=== PATIENT | male | born 1945 | race Caucasian/White ===

== ENCOUNTER → 2017-05-06 16:11 | Outpatient (CLI) | payer MEDICARE, SELFPAY ==
[2017-05-06 16:44] LABS: Basophils % 0.6 % (0.1-2.0); Eosinophils # 0.1 K/mm3 (0.0-0.4); Eosinophils % 1.7 % (0.1-12.0); Hematocrit 46.1 % (42.0-52.0); Hemoglobin 14.7 g/dL (14.1-18.0); Lymphocytes # 1.5 K/mm3 (0.7-4.5); Mean Corpuscular Hemoglobin 29.8 pg (27.0-31.2); Mean Corpuscular Volume 93.2 fl (80-94); Mean Platelet Volume 7.9 fl (7.4-10.4); Monocytes # 0.4 K/mm3 (0.1-1.0); Monocytes % 6.2 % (1.7-9.3); Neutrophils # 4.6 K/mm3 (1.8-7.8); Neutrophils % 69.6 % (37.0-80.0); Platelet Count 262 K/mm3 (142-424); Red Blood Count 4.94 M/mm3 (4.60-6.20); Red Cell Distribution Width 13.3 % (11.5-17.5); White Blood Count 6.7 K/mm3 (4.8-10.8)
[2017-05-06 19:53] LABS: Alanine Aminotransferase 41 U/L (12-78); Albumin Level 4.1 gm/dL (3.4-5.0); Albumin/Globulin Ratio 1.2 (1.1-1.8); Alkaline Phosphatase 80 U/L (46-116); Anion Gap 14.3 mEq/L (5-15); Aspartate Amino Transferase 32 U/L (15-37); Bilirubin,Total 0.3 mg/dL (0.2-1.0); Blood Urea Nitrogen 14 mg/dL (7-18); Calcium 8.9 mg/dL (8.5-10.1); Carbon Dioxide 28 mmol/L (21.0-32.0); Chloride 104 mmol/L (98-107); Chol/HDL Ratio 3.5 (1-3.5); Cholesterol 201 mg/dL (140-200); Creatinine,Serum 0.85 mg/dL (0.70-1.30); Estimated Glomerular Filt Rate 89 ml/min (>60); GFR (African American) 108 ML/MIN (>60); Globulin 3.3 gm/dl (1.3-3.2); Glucose 92 mg/dL (74-106); HDL Cholesterol 57 mg/dL (27-67); LDL Cholesterol 133 mg/dL (0-130); Potassium 4.3 mmoL/L (3.5-5.1); Sodium 142 mmol/L (136-145); Thyroid Stimulating Hormone 0.64 uIU/ml (0.358-3.740); Total Protein,Serum 7.4 gm/dL (6.4-8.2); Triglycerides 56 mg/dL (30-200); VLDL Cholesterol 11 mg/dL (0-40)
[2017-05-08 18:29] LABS: Vitamin B12 347 pg/mL (232-1245); Vitamin D 25 Hydroxy 20.6 ng/mL (30.0-100.0)
== END ==
PROVIDERS: PCP Nurse Practitioner Family; Visit Provider Nurse Practitioner Family
DX: Z00.00 Encounter for general adult medical examination without abnormal findings (principal); R53.83 Other fatigue; R10.84 Generalized abdominal pain; Z79.899 Other long term (current) drug therapy
CPT/HCPCS: 36415; 80053; 80061; 82607; 82652; 84443; 85025

== ENCOUNTER → 2017-05-13 14:30 | Outpatient (POV) | payer MEDICARE, SELFPAY | PROVIDERS: PCP Nurse Practitioner Family; Visit Provider Dermatology | DX: Z00.00 Encounter for general adult medical examination without abnormal findings (principal) ==

== ENCOUNTER → 2017-08-10 10:22 | Outpatient (POV) | payer MEDICARE, SELFPAY | PROVIDERS: Visit Provider Internal Medicine | DX: Z00.00 Encounter for general adult medical examination without abnormal findings (principal) ==

== ENCOUNTER → 2017-11-04 10:53 | Outpatient (CLI) | payer MEDICARE, SELFPAY ==
[2017-11-04 12:06] LABS: Alanine Aminotransferase 29 U/L (12-78); Alkaline Phosphatase 90 U/L (46-116); Aspartate Amino Transferase 19 U/L (15-37); Bilirubin,Total 0.4 mg/dL (0.2-1.0); Blood Urea Nitrogen 18 mg/dL (7-18); Calcium 9.2 mg/dL (8.5-10.1); Carbon Dioxide 30 mmol/L (21.0-32.0); Chloride 103 mmol/L (98-107); Chol/HDL Ratio 3.8 (1-3.5); Cholesterol 209 mg/dL (140-200); Creatinine,Serum 0.91 mg/dL (0.70-1.30); Estimated Glomerular Filt Rate 82 ml/min (>60); GFR (African American) 99 ML/MIN (>60); Glucose 103 mg/dL (74-106); HDL Cholesterol 55 mg/dL (27-67); LDL Cholesterol 121 mg/dL (0-130); Sodium 141 mmol/L (136-145); Triglycerides 165 mg/dL (30-200); VLDL Cholesterol 33 mg/dL (0-40)
== END ==
PROVIDERS: Visit Provider Nurse Practitioner Family
DX: Z00.00 Encounter for general adult medical examination without abnormal findings (principal); E78.00 Pure hypercholesterolemia, unspecified
CPT/HCPCS: 36415; 80053; 80061

== ENCOUNTER → 2018-02-02 09:42 | Outpatient (CLI) | payer MEDICARE, SELFPAY ==
[2018-02-02 11:46] LABS: Alanine Aminotransferase 26 U/L (12-78); Albumin/Globulin Ratio 1.1 (1.1-1.8); Alkaline Phosphatase 90 U/L (46-116); Anion Gap 14.9 mEq/L (5-15); Aspartate Amino Transferase 25 U/L (15-37); Bilirubin,Total 0.5 mg/dL (0.2-1.0); Blood Urea Nitrogen 19 mg/dL (7-18); Calcium 8.8 mg/dL (8.5-10.1); Carbon Dioxide 28 mmol/L (21.0-32.0); Chloride 103 mmol/L (98-107); Chol/HDL Ratio 3.7 (1-3.5); Cholesterol 227 mg/dL (140-200); Creatinine,Serum 1.12 mg/dL (0.70-1.30); Estimated Glomerular Filt Rate 64 ml/min (>60); GFR (African American) 78 ML/MIN (>60); Globulin 3.7 gm/dl (1.3-3.2); Glucose 92 mg/dL (74-106); HDL Cholesterol 61 mg/dL (27-67); LDL Cholesterol 133 mg/dL (0-130); Potassium 4.9 mmoL/L (3.5-5.1); Sodium 141 mmol/L (136-145); Total Protein,Serum 7.7 gm/dL (6.4-8.2); Triglycerides 167 mg/dL (30-200); VLDL Cholesterol 33 mg/dL (0-40)
== END ==
PROVIDERS: PCP Internal Medicine Adolescent Medicine; Visit Provider Nurse Practitioner Family
DX: Z00.00 Encounter for general adult medical examination without abnormal findings (principal); E78.00 Pure hypercholesterolemia, unspecified
CPT/HCPCS: 36415; 80053; 80061

== ENCOUNTER → 2018-05-05 10:14 | Outpatient (CLI) | payer MEDICARE, SELFPAY ==
[2018-05-05 13:22] LABS: Alanine Aminotransferase 25 U/L (12-78); Albumin Level 3.6 gm/dL (3.4-5.0); Alkaline Phosphatase 94 U/L (46-116); Aspartate Amino Transferase 24 U/L (15-37); Bilirubin,Total 0.7 mg/dL (0.2-1.0); Blood Urea Nitrogen 17 mg/dL (7-18); Calcium 9.1 mg/dL (8.5-10.1); Carbon Dioxide 27 mmol/L (21.0-32.0); Chloride 105 mmol/L (98-107); Chol/HDL Ratio 3.9 (1-3.5); Cholesterol 212 mg/dL (140-200); Creatinine,Serum 1.01 mg/dL (0.70-1.30); Estimated Glomerular Filt Rate 73 ml/min (>60); GFR (African American) 88 ML/MIN (>60); Globulin 3.5 gm/dl (1.3-3.2); Glucose 93 mg/dL (74-106); HDL Cholesterol 54 mg/dL (27-67); LDL Cholesterol 149 mg/dL (0-130); Sodium 140 mmol/L (136-145); Total Protein,Serum 7.1 gm/dL (6.4-8.2); Triglycerides 44 mg/dL (30-200); VLDL Cholesterol 9 mg/dL (0-40)
== END ==
PROVIDERS: Visit Provider Nurse Practitioner Family
DX: Z00.00 Encounter for general adult medical examination without abnormal findings (principal); E78.00 Pure hypercholesterolemia, unspecified; R76.8 Other specified abnormal immunological findings in serum
CPT/HCPCS: 36415; 80053; 80061

== ENCOUNTER → 2018-05-17 08:51 | Outpatient (POV) | payer MEDICARE, SELFPAY | PROVIDERS: Visit Provider Dermatology | DX: Z00.00 Encounter for general adult medical examination without abnormal findings (principal) ==

== ENCOUNTER → 2018-06-30 09:04 | Outpatient (CLI) | payer MEDICARE, SELFPAY ==
--- NOTE | 2018-06-30 10:00 | US_ITS ---
US abdomen complete HISTORY: ITS.REASON: HEP C ORDERING PHYSICIAN: Fernando Bhatt PATIENT AGE: 73 years COMPARISON: None FINDINGS: PANCREAS:Unremarkable. No obvious mass or abnormal fluid collection. No ductal dilatation LIVER:There is homogeneous echogenicity of the hepatic parenchyma. A 2 x 1 cm hypoechoic area is present in the medial segment of left hepatic lobe anteriorly and consistent with a hepatic cyst. Portal vein is not enlarged. RIGHT KIDNEY:Unremarkable. Normal size and echogenicity. No hydronephrosis. There is 8 mm right renal cyst LEFT KIDNEY:Poorly demonstrated. No obvious hydronephrosis. GALLBLADDER:No gallstones, gallbladder wall thickening, pericholecystic fluid, or biliary dilatation. AORTA:No evidence of aneurysmal dilatation. SPLEEN:Poorly demonstrated ASCITES:None demonstrated. IMPRESSION: 1. 2 cm hepatic cyst 2. The spleen and left kidney are not well delineated. 3. Small right renal cyst 4 otherwise negative abdominal ultrasound
== END ==
PROVIDERS: PCP Internal Medicine Adolescent Medicine; Visit Provider Nurse Practitioner Acute Care
DX: B19.20 Unspecified viral hepatitis C without hepatic coma (principal)
CPT/HCPCS: 76700

== ENCOUNTER → 2018-07-25 09:48 | Outpatient (CLI) | payer MEDICARE, SELFPAY ==
[2018-07-25 10:45] VITALS: PULSE 85; PULSE 87
[2018-07-25 11:30] VITALS: BP 120/72; BP 130/75; PULSE 102; PULSE 83; RESP 16; RESP 18; O2SAT 97; O2SAT 98
== END ==
PROVIDERS: PCP Internal Medicine Adolescent Medicine; Visit Provider Internal Medicine
DX: R06.02 Shortness of breath (principal); J44.9 Chronic obstructive pulmonary disease, unspecified
CPT/HCPCS: 94060; 94618; 94640; 94726; 94729

== ENCOUNTER → 2018-08-09 10:22 | Outpatient (POV) | payer MEDICARE, SELFPAY ==
[2018-08-09 10:53] LABS: Basophils % 0.8 % (0.1-2.0); Eosinophils # 0.3 K/mm3 (0.0-0.4); Eosinophils % 5.7 % (0.1-12.0); Hematocrit 45.1 % (42.0-52.0); Hemoglobin 14.7 g/dL (14.1-18.0); Lymphocytes # 1.5 K/mm3 (0.7-4.5); Lymphocytes % 26.3 % (10-50); Mean Corpuscular HGB Conc 32.6 g/dL (31.8-35.4); Mean Corpuscular Hemoglobin 29.9 pg (27.0-31.2); Mean Corpuscular Volume 91.9 fl (80-94); Mean Platelet Volume 7.4 fl (7.4-10.4); Monocytes # 0.5 K/mm3 (0.1-1.0); Monocytes % 9.3 % (1.7-9.3); Neutrophils # 3.2 K/mm3 (1.8-7.8); Neutrophils % 57.9 % (37.0-80.0); Platelet Count 250 K/mm3 (142-424); Red Cell Distribution Width 13.7 % (11.5-17.5); White Blood Count 5.5 K/mm3 (4.8-10.8)
[2018-08-09 14:42] LABS: Alanine Aminotransferase 23 U/L (12-78); Albumin/Globulin Ratio 1.1 (1.1-1.8); Alkaline Phosphatase 99 U/L (46-116); Anion Gap 15.4 mEq/L (5-15); Aspartate Amino Transferase 16 U/L (15-37); Bilirubin,Total 0.5 mg/dL (0.2-1.0); Blood Urea Nitrogen 14 mg/dL (7-18); Calcium 9.3 mg/dL (8.5-10.1); Carbon Dioxide 26 mmol/L (21.0-32.0); Chloride 102 mmol/L (98-107); Creatinine,Serum 0.87 mg/dL (0.70-1.30); Estimated Glomerular Filt Rate 86 ml/min (>60); GFR (African American) 104 ML/MIN (>60); Globulin 3.8 gm/dl (1.3-3.2); Glucose 96 mg/dL (74-106); Potassium 4.4 mmoL/L (3.5-5.1); Sodium 139 mmol/L (136-145); Total Protein,Serum 7.8 gm/dL (6.4-8.2)
== END ==
PROVIDERS: Nurse Practitioner Acute Care; Visit Provider Internal Medicine
DX: R94.5 Abnormal results of liver function studies (principal); B19.20 Unspecified viral hepatitis C without hepatic coma; Z79.899 Other long term (current) drug therapy
CPT/HCPCS: 36415; 80053; 85025; 87522

== ENCOUNTER → 2018-08-09 10:35 | Outpatient (POV) | payer MEDICARE, SELFPAY | PROVIDERS: Visit Provider Internal Medicine | DX: Z00.00 Encounter for general adult medical examination without abnormal findings (principal) ==

== ENCOUNTER → 2018-09-06 10:29 | Outpatient (CLI) | payer MEDICARE, SELFPAY ==
[2018-09-08 23:07] LABS: HCV Genotype Charge YES
== END ==
PROVIDERS: Visit Provider Nurse Practitioner Acute Care
DX: B19.20 Unspecified viral hepatitis C without hepatic coma (principal); Z79.899 Other long term (current) drug therapy
CPT/HCPCS: 36415; 87522; 87902

== ENCOUNTER → 2018-09-20 10:10 | Outpatient (CLI) | payer MEDICARE, SELFPAY ==
[2018-09-20 12:13] LABS: Basophils % 0.7 % (0.1-2.0); Eosinophils # 0.2 K/mm3 (0.0-0.4); Eosinophils % 4.4 % (0.1-12.0); Hematocrit 42.7 % (42.0-52.0); Hemoglobin 13.3 g/dL (14.1-18.0); Lymphocytes % 22.4 % (10-50); Mean Corpuscular HGB Conc 31.2 g/dL (31.8-35.4); Mean Corpuscular Hemoglobin 28.7 pg (27.0-31.2); Mean Corpuscular Volume 91.8 fl (80-94); Mean Platelet Volume 8.1 fl (7.4-10.4); Monocytes # 0.4 K/mm3 (0.1-1.0); Neutrophils # 2.9 K/mm3 (1.8-7.8); Neutrophils % 63.5 % (37.0-80.0); Platelet Count 238 K/mm3 (142-424); Red Blood Count 4.66 M/mm3 (4.60-6.20); Red Cell Distribution Width 13.4 % (11.5-17.5); White Blood Count 4.6 K/mm3 (4.8-10.8)
[2018-09-20 12:16] LABS: Alanine Aminotransferase 18 U/L (12-78); Albumin Level 3.7 gm/dL (3.4-5.0); Albumin/Globulin Ratio 1.1 (1.1-1.8); Alkaline Phosphatase 95 U/L (46-116); Anion Gap 11.9 mEq/L (5-15); Aspartate Amino Transferase 18 U/L (15-37); Bilirubin,Total 0.5 mg/dL (0.2-1.0); Blood Urea Nitrogen 12 mg/dL (7-18); Calcium 8.8 mg/dL (8.5-10.1); Carbon Dioxide 28 mmol/L (21.0-32.0); Chloride 105 mmol/L (98-107); Estimated Glomerular Filt Rate 83 ml/min (>60); GFR (African American) 100 ML/MIN (>60); Globulin 3.5 gm/dl (1.3-3.2); Glucose 90 mg/dL (74-106); Potassium 4.9 mmoL/L (3.5-5.1); Sodium 140 mmol/L (136-145); Total Protein,Serum 7.2 gm/dL (6.4-8.2)
[2018-09-20 13:27] LABS: INR 1.02 (0.9-1.1); Prothrombin Time 10.6 seconds (9.4-11.8)
[2018-09-22 12:15] LABS: HCV Genotype Charge YES
== END ==
PROVIDERS: Visit Provider Nurse Practitioner Acute Care
DX: B19.20 Unspecified viral hepatitis C without hepatic coma (principal); Z79.899 Other long term (current) drug therapy
CPT/HCPCS: 36415; 80053; 85025; 85610; 87522; 87902

== ENCOUNTER → 2018-10-26 09:58 | Outpatient (CLI) | payer MEDICARE, SELFPAY ==
[2018-10-26 10:20] LABS: Basophils # 0.1 K/mm3 (0-0.2); Basophils % 1.1 % (0.1-2.0); Eosinophils # 0.2 K/mm3 (0.0-0.4); Eosinophils % 3.8 % (0.1-12.0); Hematocrit 41.8 % (42.0-52.0); Hemoglobin 13.2 g/dL (14.1-18.0); Lymphocytes # 1.1 K/mm3 (0.7-4.5); Lymphocytes % 19.7 % (10-50); Mean Corpuscular HGB Conc 31.6 g/dL (31.8-35.4); Mean Corpuscular Hemoglobin 28.8 pg (27.0-31.2); Mean Corpuscular Volume 91.1 fl (80-94); Mean Platelet Volume 7.4 fl (7.4-10.4); Monocytes # 0.4 K/mm3 (0.1-1.0); Monocytes % 7.1 % (1.7-9.3); Neutrophils # 3.6 K/mm3 (1.8-7.8); Neutrophils % 68.2 % (37.0-80.0); Platelet Count 239 K/mm3 (142-424); Red Blood Count 4.59 M/mm3 (4.60-6.20); Red Cell Distribution Width 13.6 % (11.5-17.5); White Blood Count 5.3 K/mm3 (4.8-10.8)
[2018-10-26 11:46] LABS: Alanine Aminotransferase 17 U/L (12-78); Albumin Level 3.4 gm/dL (3.4-5.0); Albumin/Globulin Ratio 1.1 (1.1-1.8); Alkaline Phosphatase 90 U/L (46-116); Anion Gap 13.5 mEq/L (5-15); Aspartate Amino Transferase 17 U/L (15-37); Bilirubin,Total 0.3 mg/dL (0.2-1.0); Blood Urea Nitrogen 12 mg/dL (7-18); Calcium 8.9 mg/dL (8.5-10.1); Carbon Dioxide 29 mmol/L (21.0-32.0); Chloride 105 mmol/L (98-107); Creatinine,Serum 0.93 mg/dL (0.70-1.30); Estimated Glomerular Filt Rate 80 ml/min (>60); GFR (African American) 97 ML/MIN (>60); Globulin 3.2 gm/dl (1.3-3.2); Glucose 84 mg/dL (74-106); Potassium 4.5 mmoL/L (3.5-5.1); Sodium 143 mmol/L (136-145); Total Protein,Serum 6.6 gm/dL (6.4-8.2)
== END ==
PROVIDERS: Visit Provider Nurse Practitioner Acute Care
DX: B19.20 Unspecified viral hepatitis C without hepatic coma (principal)
CPT/HCPCS: 36415; 80053; 85025; 87522

== ENCOUNTER → 2018-12-13 08:25 | Outpatient (CLI) | payer MEDICARE, SELFPAY ==
[2018-12-13 08:51] LABS: INR 0.96 (0.9-1.1)
[2018-12-13 09:00] LABS: Basophils % 0.6 % (0.1-2.0); Eosinophils # 0.2 K/mm3 (0.0-0.4); Eosinophils % 4.2 % (0.1-12.0); Hematocrit 45.6 % (42.0-52.0); Hemoglobin 14.6 g/dL (14.1-18.0); Lymphocytes # 1.2 K/mm3 (0.7-4.5); Lymphocytes % 20.8 % (10-50); Mean Corpuscular HGB Conc 32.1 g/dL (31.8-35.4); Mean Corpuscular Hemoglobin 30.6 pg (27.0-31.2); Mean Corpuscular Volume 95.3 fl (80-94); Mean Platelet Volume 7.4 fl (7.4-10.4); Monocytes # 0.4 K/mm3 (0.1-1.0); Monocytes % 7.3 % (1.7-9.3); Neutrophils # 3.7 K/mm3 (1.8-7.8); Neutrophils % 67.1 % (37.0-80.0); Platelet Count 215 K/mm3 (142-424); Red Blood Count 4.78 M/mm3 (4.60-6.20); Red Cell Distribution Width 13.7 % (11.5-17.5); White Blood Count 5.5 K/mm3 (4.8-10.8)
[2018-12-13 10:49] LABS: Alanine Aminotransferase 17 U/L (12-78); Albumin Level 3.6 gm/dL (3.4-5.0); Albumin/Globulin Ratio 1.1 (1.1-1.8); Alkaline Phosphatase 79 U/L (46-116); Aspartate Amino Transferase 21 U/L (15-37); Bilirubin,Total 0.5 mg/dL (0.2-1.0); Blood Urea Nitrogen 13 mg/dL (7-18); Calcium 8.8 mg/dL (8.5-10.1); Carbon Dioxide 29 mmol/L (21.0-32.0); Chloride 106 mmol/L (98-107); Creatinine,Serum 0.84 mg/dL (0.70-1.30); Estimated Glomerular Filt Rate 90 ml/min (>60); GFR (African American) 109 ML/MIN (>60); Globulin 3.4 gm/dl (1.3-3.2); Glucose 93 mg/dL (74-106); Sodium 143 mmol/L (136-145)
[2018-12-13 11:20] LABS: Triglycerides 52 mg/dL (30-200)
[2018-12-13 11:21] LABS: Chol/HDL Ratio 3.2 (1-3.5); Cholesterol 188 mg/dL (140-200); HDL Cholesterol 58 mg/dL (27-67); LDL Cholesterol 120 mg/dL (0-130); VLDL Cholesterol 10 mg/dL (0-40)
[2018-12-14 07:28] LABS: Vitamin B12 336 pg/mL (232-1245); Vitamin D 25 Hydroxy 22.8 ng/mL (30.0-100.0)
== END ==
PROVIDERS: Nurse Practitioner Family; Visit Provider Nurse Practitioner Acute Care
DX: B19.20 Unspecified viral hepatitis C without hepatic coma (principal); Z79.899 Other long term (current) drug therapy; E78.00 Pure hypercholesterolemia, unspecified; E53.8 Deficiency of other specified B group vitamins; E55.9 Vitamin D deficiency, unspecified
CPT/HCPCS: 36415; 80053; 80061; 82607; 82652; 85025; 85610; 87522

== ENCOUNTER → 2018-12-28 13:22 | Outpatient (CLI) | payer MEDICARE, SELFPAY ==
--- NOTE | 2018-12-28 13:30 | XR_ITS ---
PROCEDURE: XR HAND LT MIN 3V CLINICAL INDICATION: CELLULITIS OF LT HAND Pain and swelling, history of splinter in the foam a COMPARISON: [id number] XR hand RT min 3V from 01/27/2018 FINDINGS: No fracture or dislocation. No lytic or blastic change. There is normal mineralization. The joint spaces are well-preserved. No significant degenerative/arthritic changes. No erosive changes evident. Other findings:No radiopaque foreign body apparent IMPRESSION: No acute finding Dictated by: Ashvin Clemens MD 12/28/2018 14:00 Electronically signed by Ashvin Clemens MD in [place] 12/28/2018 14:00
== END ==
PROVIDERS: PCP Internal Medicine Adolescent Medicine; Visit Provider Nurse Practitioner Family
DX: L03.114 Cellulitis of left upper limb (principal)
CPT/HCPCS: 73130

== ENCOUNTER → 2019-05-16 09:56 | Outpatient (CLI) | payer MEDICARE, SELFPAY ==
[2019-05-16 10:25] LABS: Basophils # 0.1 K/mm3 (0-0.2); Basophils % 0.9 % (0.1-2.0); Eosinophils # 0.2 K/mm3 (0.0-0.4); Eosinophils % 3.9 % (0.1-12.0); Hematocrit 42.9 % (42.0-52.0); Hemoglobin 13.7 g/dL (14.1-18.0); Lymphocytes # 1.2 K/mm3 (0.7-4.5); Lymphocytes % 21.4 % (10-50); Mean Corpuscular HGB Conc 31.8 g/dL (31.8-35.4); Mean Corpuscular Hemoglobin 30.6 pg (27.0-31.2); Mean Corpuscular Volume 96.1 fl (80-94); Mean Platelet Volume 8.1 fl (7.4-10.4); Monocytes # 0.4 K/mm3 (0.1-1.0); Monocytes % 6.6 % (1.7-9.3); Neutrophils # 3.9 K/mm3 (1.8-7.8); Neutrophils % 67.2 % (37.0-80.0); Platelet Count 233 K/mm3 (142-424); Red Blood Count 4.47 M/mm3 (4.60-6.20); Red Cell Distribution Width 13.2 % (11.5-17.5); White Blood Count 5.8 K/mm3 (4.8-10.8)
[2019-05-16 17:07] LABS: Alanine Aminotransferase 19 U/L (12-78); Albumin Level 4.1 gm/dL (3.4-5.0); Albumin/Globulin Ratio 1.4 (1.1-1.8); Alkaline Phosphatase 68 U/L (46-116); Anion Gap 13.7 mEq/L (5-15); Aspartate Amino Transferase 22 U/L (15-37); Bilirubin,Total 0.5 mg/dL (0.2-1.0); Blood Urea Nitrogen 14 mg/dL (7-18); Carbon Dioxide 28 mmol/L (21.0-32.0); Chloride 107 mmol/L (98-107); Chol/HDL Ratio 3.4 (1-3.5); Cholesterol 193 mg/dL (140-200); Creatinine,Serum 0.92 mg/dL (0.70-1.30); Estimated Glomerular Filt Rate 81 ml/min (>60); GFR (African American) 98 ML/MIN (>60); Glucose 90 mg/dL (74-106); HDL Cholesterol 56 mg/dL (27-67); LDL Cholesterol 127 mg/dL (0-130); Potassium 4.7 mmoL/L (3.5-5.1); Sodium 144 mmol/L (136-145); Total Protein,Serum 7.1 gm/dL (6.4-8.2); Triglycerides 50 mg/dL (30-200); VLDL Cholesterol 10 mg/dL (0-40)
[2019-05-17 11:58] LABS: Vitamin B12 >2000 pg/mL (232-1245)
== END ==
PROVIDERS: Visit Provider Nurse Practitioner Family
DX: Z00.00 Encounter for general adult medical examination without abnormal findings (principal); E78.00 Pure hypercholesterolemia, unspecified; E53.8 Deficiency of other specified B group vitamins
CPT/HCPCS: 36415; 80053; 80061; 82607; 82652; 85025

== ENCOUNTER → 2019-06-19 09:23 | Outpatient (CLI) | payer MEDICARE, SELFPAY | PROVIDERS: PCP Internal Medicine Adolescent Medicine; Visit Provider Nurse Practitioner Family | DX: R06.09 Other forms of dyspnea (principal); J44.9 Chronic obstructive pulmonary disease, unspecified; R53.81 Other malaise | CPT/HCPCS: 93306 ==

== ENCOUNTER 2019-06-22 09:30 | Outpatient (RCR) | payer MEDICARE, SELFPAY ==
--- NOTE | 2019-05-29 11:20 | HMH.OTOPEV ---
OT Inpatient Evaluation Rehab OT Outpatient Eval Start: 05/29/19 09:28 Freq: Status: Active Protocol: Document 05/29/19 10:47 RMNUHA (Rec: 05/29/19 11:19 [facility] [id number] Electronically Signed By Bela Morales OT 05/29/19 10:47 Outpatient Therapy Subjective History Subjective History Pt is a 74 year old male who reports to therapy for initial evaluation to L shoulder. Pt reports on 05/16/19 he was cutting trees and chopping wood and woke up the following day with L shoulder pain. Pt demonstrates with slight decreased AROM and minimal pain. Strength remains good. Pt will continue to be seen twice a week in order to address shoulder defitis to improve overal functional ability. Chief Complaint Pain Symptom Type Ache,Sharp,Dull Symptoms Relieved By Rest/Positioning Symptoms Aggravated By Physical Activity,Lifting Prior Functional Limitations None Current Functional Limitations Reaching,Lifting,Housework, Sleeping,Recreation Activity Symptom Description Constant but Variable Level of pain today (0-10) 4 Pain scale - at its best (0-10) 2 Pain scale - at its worst (0-10) 8 Shoulder/Elbow Eval Shoulder Objective Measurements Shoulder ROM Left Shoulder Abduction Active Range of 130 degrees Motion (degrees) Shoulder Flexion Active Range of Motion 125 degrees (degrees) Query Text: Shoulder External Rotation Active Range 50 degrees of Motion (degrees) Shoulder Internal Rotation Active Range 50 degrees of Motion (degrees) pain with active ROM shoulder exam left standard pain with passive ROM shoulder exam left standard decreased ROM shoulder exam standard left Shoulder MMT Shoulder Abduction Strength Grade 4 Good Shoulder Extension Strength Grade 4 Good Shoulder Flexion Strength Grade 4 Good Shoulder External Rotation Strength 4- Good- Grade Shoulder Internal Rotation Strength 4- Good- Grade Shoulder Strength Patient Testing Sitting Position Elbow Objective Measurements OT Outpatient Assessment Impairments Problems/Impairments Palpation Tenderness,Impaired Range of Motion,Impaired
== END 2019-06-22 09:35 | disposition home or self-care (01) ==
LOC: OT 09:30
PROVIDERS: PCP Internal Medicine Adolescent Medicine; Visit Provider Nurse Practitioner Family
DX: M25.512 Pain in left shoulder (principal)
CPT/HCPCS: 97014; 97110; 97166; G0283

== ENCOUNTER → 2019-08-30 10:42 | Outpatient (CLI) | payer MEDICARE, SELFPAY ==
--- NOTE | 2019-08-30 10:55 | XR_ITS ---
PROCEDURE: XR SHOULDER LT MIN 2V CLINICAL INDICATION: CHRONIC PAIN Left shoulder pain COMPARISON: No exams were available for comparison FINDINGS: There are mild osteoarthritic changes of the glenohumeral joint. No fracture or dislocation. No lytic or blastic change. No significant subacromial stenosis. IMPRESSION: Mild osteoarthritis of the left shoulder Dictated by: Ashvin Clemens MD 08/30/2019 11:08 Electronically signed by Ashvin Clemens MD in [place] 08/30/2019 11:08
[2019-08-30 11:05] LABS: Basophils # 0.1 K/mm3 (0-0.2); Basophils % 0.9 % (0.1-2.0); Eosinophils # 0.3 K/mm3 (0.0-0.4); Eosinophils % 5.8 % (0.1-12.0); Hematocrit 44.4 % (42.0-52.0); Hemoglobin 13.9 g/dL (14.1-18.0); Lymphocytes # 1.2 K/mm3 (0.7-4.5); Lymphocytes % 22.5 % (10-50); Mean Corpuscular HGB Conc 31.4 g/dL (31.8-35.4); Mean Corpuscular Hemoglobin 30.4 pg (27.0-31.2); Mean Platelet Volume 7.6 fl (7.4-10.4); Monocytes # 0.3 K/mm3 (0.1-1.0); Monocytes % 6.2 % (1.7-9.3); Neutrophils # 3.5 K/mm3 (1.8-7.8); Neutrophils % 64.6 % (37.0-80.0); Platelet Count 223 K/mm3 (142-424); Red Blood Count 4.58 M/mm3 (4.60-6.20); Red Cell Distribution Width 13.6 % (11.5-17.5); White Blood Count 5.4 K/mm3 (4.8-10.8)
[2019-08-30 12:11] LABS: Alanine Aminotransferase 10 U/L (12-78); Albumin Level 4.4 g/dl (3.5-5.0); Albumin/Globulin Ratio 1.5 (1.1-1.8); Alkaline Phosphatase 65 U/L (38-126); Anion Gap 9.5 mEq/L (5-15); Aspartate Amino Transferase 25 U/L (17-59); Bilirubin,Total 0.6 mg/dl (0.2-1.3); Blood Urea Nitrogen 15 mg/dl (9-20); Calcium 9.5 mg/dl (8.4-10.2); Carbon Dioxide 27 mmol/L (22.0-30.0); Chloride 105 mmol/L (98-107); Chol/HDL Ratio 2.9 (1-3.5); Cholesterol 181 mg/dl (140-200); Estimated Glomerular Filt Rate 95 ml/min (>60); GFR (African American) 115 ML/MIN (>60); Glucose 96 mg/dl (74-100); HDL Cholesterol 62 mg/dl (40-60); Potassium 4.5 mmoL/L (3.5-5.1); Sodium 137 mmol/L (136-145); Total Protein,Serum 7.4 g/dl (6.3-8.2); Triglycerides 67 mg/dl (30-150); VLDL Cholesterol 13 mg/dL (0-40)
[2019-08-30 12:22] LABS: Direct LDL Cholesterol 126.64 mg/dL (100-129)
[2019-08-31 11:40] LABS: Vitamin B12 1257 pg/mL (232-1245); Vitamin D 25 Hydroxy 41.1 ng/mL (30.0-100.0)
== END ==
PROVIDERS: Visit Provider Nurse Practitioner Family
DX: Z00.00 Encounter for general adult medical examination without abnormal findings (principal); E78.00 Pure hypercholesterolemia, unspecified; E55.9 Vitamin D deficiency, unspecified; G89.29 Other chronic pain; Z72.0 Tobacco use
CPT/HCPCS: 36415; 73030; 80053; 80061; 82607; 82652; 85025

== ENCOUNTER → 2019-09-11 10:51 | Outpatient (CLI) | payer MEDICARE, SELFPAY ==
--- NOTE | 2019-09-11 10:56 | CT_ITS ---
PROCEDURE: CT LUNG SCREENING CLINICAL INDICATION: H/O TOBACCO USE Fifty pack-year smoking history, asymptomatic for lung cancer COMPARISON: [facility] CT CHEST W/O CONTRAST from 01/12/2017 TECHNIQUE: The exam was performed on a GE Light Speed [address] scanner using 2.90 mGy CTDI. A low dose helical CT CHEST was performed on a multi-detector scanner. All CT scans at the facility use one or more dose reduction, viz: automated exposure control, ma/kV adjustment per patient size (including targeted exams where dose is matched to indication, i.e. head), or iterative reconstruction technique. The LDCT was performed in a facility that meets the criteria for the screening program. Data regarding this exam was submitted to ACR which is an approved registry. The order for this exam indicates that it came as a result of a lung cancer screening counseling shard decision-making visit that included all the elements required of such a visit including smoking cessation. The radiologist interpreting this exam meets the CMS criteria for the LDCT lung cancer screening program. The exam is reported using the Lung-RADS classification scale and reported to the ACR registry. NOTE: This study was performed for the specific purposes of lung cancer screening and is not an alternative to diagnostic chest CT. RADIATION DOSE: CTDI vol(CT dose Index-volume) = 2.90mG DLP (Dose Length Product) = 116.46 mGcm Lung Rads Category: FINDINGS: COPD with scattered areas of scarring with centrilobular and paraseptal emphysematous changes with scattered bulla. No suspicious pulmonary nodules. OTHER FINDINGS: Old granulomatous disease IMPRESSION: Lung rads category 1, negative Recommend annual LDCT Dictated by: Ashvin Clemens MD 09/24/2019 09:11 Electronically signed by Ashvin Clemens MD in [place] 09/24/2019 09:11
== END ==
PROVIDERS: PCP Internal Medicine Adolescent Medicine; Visit Provider Internal Medicine Adolescent Medicine
DX: Z87.891 Personal history of nicotine dependence (principal); Z12.2 Encounter for screening for malignant neoplasm of respiratory organs

== ENCOUNTER → 2019-09-18 08:06 | Outpatient (CLI) | payer MEDICARE, SELFPAY ==
--- NOTE | 2019-09-18 08:12 | MR_ITS ---
PROCEDURE: MR SHOULDER LT WO CON CLINICAL INDICATION: evaluate for a rotator cuff tear Shoulder pain, unable to raise arm above COMPARISON: XR SHOULDER LT MIN 2V from 08/30/2019 TECHNIQUE: Routine multiplanar multi echo sequences are performed without gadolinium enhancement. FINDINGS: Motion artifact does somewhat obscure fine detail. There are mild hypertrophic changes of the acromioclavicular joint. No significant subacromial stenosis. There is mild thickening of the supraspinatus tendon with slight increased T2 signal suggesting mild tendinopathy/tendinosis. The infraspinatus tendon has an unremarkable appearance. Subscapularis and teres minor tendons are unremarkable. No evidence of rotator cuff tear. There are however slightly prominent subchondral cystic changes of the humeral head posteriorly and anteriorly with mild osteoarthritic changes of the glenohumeral joint. The bicipital tendon is in place. Small amount fluid is present around the bicipital tendon sheath. There is a small shoulder joint effusion. No obvious labral tear. Small amount fluid is present in the subcoracoid region. IMPRESSION: 1. No evidence of rotator cuff tear. 2. Tendinopathy/tendinosis of the supraspinatus tendon. 3. Mild osteoarthritis of the glenohumeral joint. Subchondral cystic changes are present involving the humeral head. Small shoulder joint effusion 4. Fluid in the bicipital tendon sheath which may be related to tendinitis Dictated by: Ashvin Clemens MD 09/19/2019 16:35 Electronically signed by Ashvin Clemens MD in [place] 09/19/2019 16:35
== END ==
PROVIDERS: PCP Internal Medicine Adolescent Medicine; Visit Provider Orthopaedic Surgery
DX: M25.512 Pain in left shoulder (principal)
CPT/HCPCS: 73221

== ENCOUNTER → 2019-10-26 11:11 | Outpatient (POV) | payer MEDICARE, SELFPAY | PROVIDERS: PCP Internal Medicine Adolescent Medicine; Visit Provider Audiologist | DX: Z00.00 Encounter for general adult medical examination without abnormal findings (principal) ==

== ENCOUNTER 2019-11-12 21:17 | Emergency (ER) | payer MEDICARE, SELFPAY ==
[2019-11-12 21:18] VITALS: BP 148/88; PULSE 60; RESP 18; TEMP 36.6; O2SAT 99; BMI 17.9
--- NOTE | 2019-11-12 21:46 | HMH.EDEXTP ---
ED Disposition Clinical Impression: Laceration Disposition: Home, Self-Care Condition on Discharge: Good Referrals: Tio Loo MD [Primary Care Provider] - - Critical Care Critical Care Time: No Attestation: On 11/12/19, the high probability of a clinically significant, sudden or life threatening deterioration of the following system(s) required my full and direct attention, intervention and personal management. The time I documented below is in addition to time spent performing reported procedures but includes the following listed in this critical care notation. Medical Decision Making - Medical Records Medical records reviewed: Yes: I reviewed the patient's medical records. - Lyndon Inquiry Pt receiving controlled substance: No Vital Signs: 11/12/19 21:18 Temperature 97.8 F Temperature Source Oral Pulse Rate [Right Brachial] 60 Respiratory Rate 18 Blood Pressure [Right Arm] 148/88 H Blood Pressure Mean [Right Arm] 108 Blood Pressure Source [Right Arm] Automatic Cuff Blood Pressure Position [Right Arm] Sitting 02 Sat by Pulse Oximetry 99 Oxygen Delivery Method Room Air - Lab Data Lab results reviewed: Yes: I reviewed the patient's lab results. Extremity Problem HPI - General Chief complaint: Extremity Injury, Upper Stated complaint: AO 11/11 @ 2030 Lac to left arm Time Seen by Provider: 11/12/19 21:46 Mode of Arrival: Ambulatory Limitations: No Limitations Description of Symptoms (Recalled from ER Triage Doc. by RN): Tripped walking up the stairs about 45 mins ago and hit is LFA on a post. He has a laceration to his LFA. He states he cleaned the area with water. He states he tetanus vaccine this year or last year. He states he took naproxen about a hour ago after he fell. - History of Present Illness HPI Narrative: A pleasant 74-year-old gentleman comes in with a laceration on his left forearm. Apparently he was walking and tripped and cut his arm. Patient denies any pain or other acute injuries. This happened just prior to arrival.Patient denies any recent cough or shortness of breath, patient denies any sore throat or headache, patient denies any loss of taste or smell, patient denies any malaise or fatigue, patient denies any abdominal pain nausea vomiting or diarrhea. - Related Data Home Medications Medication Instructions Recorded Confirmed albuterol sulfate 90 mcg/actuation 2 puff INHALATION Q6H PRN 05/23/19 10/11/19 aerosol inhaler umeclidinium 62.5 mcg-vilanterol 1 inh INHALATION DAILY 05/23/19 10/11/19 25 mcg/actuation powdr for inhalation Acetaminophen [Tylenol] 650 mg PO QIDP PRN 11/12/19 11/12/19 Allergies Allergy/AdvReac Type Severity Reaction Status Date / Time iodine [IODINE] Allergy Unknown I-HIVES Verified 11/12/19 21:31 [facility] History - Hepatitis A Screen Drug use history?: No High risk sexual behaviors?: No History of sexually transmitted infection?: No Currently employed?: No Childcare worker?: No Do you have indoor plumbing?: Yes Do you have electricity?: Yes Attestation statement:: This patient has been screened for Hepatitis A risk factors. I have reviewed the patient's past medical history: Yes Medical History: Reports:: Asthma, Chronic Obstructive Pulmonary Disease (COPD), Hepatitis Denies:: Cancer, Diabetes Mellitus Type 1, Diabetes Mellitus Type 2, Hypertension, MRSA Other Medical History: Reports: Liver Disease Other Surgeries: Yes: Colonoscopy, Colon Resection, Other Amputation: No Fractures: Yes (wrist, finger : childhood) - Social History Smoking Status: Smoker, status unknown Alcohol Intake: never Alcohol Intake Frequency:: holidays/special occasions only Substance Use Type: denies use, opiates, other, methamphetamine, crack/cocaine, heroin, marijuana Occupational Status: retired Household Members: spouse Family Hx:: Diabetes, Cancer Comment: cirrhosis ROS Obtained: Yes All systems reviewed & no additional complaint
[2019-11-12 22:29] VITALS: BP 125/75; PULSE 79; RESP 18; TEMP 36.8; O2SAT 98
== END 2019-11-12 22:32 | disposition home or self-care (01) ==
PROVIDERS: Emergency Provider Family Medicine; PCP Internal Medicine Adolescent Medicine
DX: S51.812A Laceration without foreign body of left forearm, initial encounter (principal); W10.9XXA Fall (on) (from) unspecified stairs and steps, initial encounter; Y92.019 Unspecified place in single-family (private) house as the place of occurrence of the external cause; J45.909 Unspecified asthma, uncomplicated
CPT/HCPCS: 12002; 99282

== ENCOUNTER → 2020-11-21 07:54 | Outpatient (CLI) | payer MEDICARE, SELFPAY ==
--- NOTE | 2020-11-21 07:58 | CT_ITS ---
PROCEDURE: CT LUNG SCREENING CLINICAL INDICATION: H/O NICOTINE DEPENDENCE Fifty pack year smoking history COMPARISON: CT [facility] CT CHEST W/O CONTRAST from 01/12/[address] LUNG SCREENING from 09/11/2019 TECHNIQUE: The exam was performed on a GE Backyard Speed [address] scanner using 2.90 mGy CTDI. A low dose helical CT CHEST was performed on a multi-detector scanner. All CT scans at the facility use one or more dose reduction, viz: automated exposure control, ma/kV adjustment per patient size (including targeted exams where dose is matched to indication, i.e. head), or iterative reconstruction technique. The LDCT was performed in a facility that meets the criteria for the screening program. Data regarding this exam was submitted to ACR which is an approved registry. The order for this exam indicates that it came as a result of a lung cancer screening counseling shard decision-making visit that included all the elements required of such a visit including smoking cessation. The radiologist interpreting this exam meets the [facility] criteria for the LDCT lung cancer screening program. The exam is reported using the Lung-RADS classification scale and reported to the ACR registry. NOTE: This study was performed for the specific purposes of lung cancer screening and is not an alternative to diagnostic chest CT. RADIATION DOSE: CTDI vol(CT dose Index-volume) = 2.90mG DLP (Dose Length Product) = 128.46 mGcm FINDINGS: COPD with scattered areas of scarring with paraseptal emphysematous changes and scattered bulla. Fissural nodules present on the right unchanged and may be due to small lymph node at 9 mm. No suspicious nodules apparent OTHER FINDINGS: Coronary artery calcification. Soft tissue density is present in the upper retroperitoneum on the left and may be due to prominent mralen of the diaphragm not significantly changed from 01/12/2017 IMPRESSION: Lung-RADS Category 2 Benign Appearance or Behavior Follow-up: Continue annual screening with LDCT in 12 months Dictated by: Ashvin Clemens MD 11/26/2020 07:06 Ashvin Clemens MD in [place] 11/26/2020 07:06
[2020-11-21 10:09] LABS: Alanine Aminotransferase 13 U/L (12-78); Albumin Level 4.2 g/dl (3.5-5.0); Albumin/Globulin Ratio 1.5 (1.1-1.8); Alkaline Phosphatase 69 U/L (38-126); Anion Gap 12.1 mEq/L (5-15); Aspartate Amino Transferase 27 U/L (17-59); Bilirubin,Total 0.6 mg/dl (0.2-1.3); Blood Urea Nitrogen 21 mg/dl (9-20); Calcium 9.1 mg/dl (8.4-10.2); Carbon Dioxide 28 mmol/L (22.0-30.0); Chloride 106 mmol/L (98-107); Chol/HDL Ratio 3.2 (1-3.5); Cholesterol 172 mg/dl (140-200); Estimated Glomerular Filt Rate 82 ml/min (>60); GFR (African American) 100 ML/MIN (>60); Globulin 2.8 g/dL (1.3-3.2); Glucose 95 mg/dl (74-100); HDL Cholesterol 53 mg/dl (40-60); Magnesium 1.9 mg/dl (1.6-2.3); Potassium 5.1 mmoL/L (3.5-5.1); Sodium 141 mmol/L (136-145); Triglycerides 55 mg/dl (30-150); VLDL Cholesterol 11 mg/dL (0-40)
[2020-11-21 10:20] LABS: Direct LDL Cholesterol 103.72 mg/dL (100-129)
[2020-11-21 10:25] LABS: 25-OH Vitamin D, Total 36.5 ng/mL (30-100)
== END ==
PROVIDERS: PCP Internal Medicine Adolescent Medicine; Visit Provider Nurse Practitioner Family
DX: Z00.00 Encounter for general adult medical examination without abnormal findings (principal); Z87.891 Personal history of nicotine dependence; Z12.2 Encounter for screening for malignant neoplasm of respiratory organs; E78.00 Pure hypercholesterolemia, unspecified; R25.2 Cramp and spasm; E55.9 Vitamin D deficiency, unspecified
CPT/HCPCS: 36415; 71271; 80053; 80061; 82306; 83735

== ENCOUNTER → 2020-12-31 09:09 | Outpatient (POV) | payer MEDICARE, SELFPAY | PROVIDERS: Visit Provider Dermatology | DX: Z00.00 Encounter for general adult medical examination without abnormal findings (principal) ==

== ENCOUNTER → 2021-07-02 08:29 | Outpatient (CLI) | payer MEDICARE, SELFPAY ==
[2021-07-02 10:11] LABS: Alanine Aminotransferase 12 U/L (12-78); Albumin Level 4.3 g/dl (3.5-5.0); Albumin/Globulin Ratio 1.5 (1.1-1.8); Alkaline Phosphatase 88 U/L (38-126); Anion Gap 8.9 mEq/L (5-15); Aspartate Amino Transferase 25 U/L (17-59); Bilirubin,Total 0.6 mg/dl (0.2-1.3); Blood Urea Nitrogen 15 mg/dl (9-20); Calcium 9.2 mg/dl (8.4-10.2); Carbon Dioxide 30 mmol/L (22.0-30.0); Chloride 105 mmol/L (98-107); Chol/HDL Ratio 3.8 (1-3.5); Cholesterol 211 mg/dl (140-200); Estimated Glomerular Filt Rate 82 ml/min (>60); GFR (African American) 100 ML/MIN (>60); Globulin 2.8 g/dL (1.3-3.2); Glucose 101 mg/dl (74-100); HDL Cholesterol 55 mg/dl (40-60); Magnesium 1.9 mg/dl (1.6-2.3); Potassium 4.9 mmoL/L (3.5-5.1); Sodium 139 mmol/L (136-145); Total Protein,Serum 7.1 g/dl (6.3-8.2); Triglycerides 81 mg/dl (30-150); VLDL Cholesterol 16 mg/dL (0-40)
[2021-07-02 10:22] LABS: Direct LDL Cholesterol 119.01 mg/dL (100-129)
[2021-07-02 10:26] LABS: 25-OH Vitamin D, Total 31.9 ng/mL (30-100)
== END ==
PROVIDERS: Visit Provider Nurse Practitioner Family
DX: E78.5 Hyperlipidemia, unspecified (principal); Z00.00 Encounter for general adult medical examination without abnormal findings; E55.9 Vitamin D deficiency, unspecified; R25.2 Cramp and spasm
CPT/HCPCS: 36415; 80053; 80061; 82306; 83735

== ENCOUNTER → 2021-07-08 14:07 | Outpatient (POV) | payer MEDICARE, SELFPAY | PROVIDERS: Visit Provider Dermatology | DX: Z00.00 Encounter for general adult medical examination without abnormal findings (principal) ==

== ENCOUNTER → 2021-11-21 12:39 | Outpatient (CLI) | payer MEDICARE, SELFPAY ==
--- NOTE | 2021-11-21 12:42 | CT_ITS ---
FINAL REPORT CLINICAL HISTORY: TOBACCO USE DISORDER FORMER SMOKER QUIT 10 YEARS AGO 1PPD X50 YEARS WHEN SMOKING COMPARISON: November 21, 2020 and September 11, 2019 FINDINGS: Low-Dose Chest CT Axial images were obtained from the lung apex to the mid abdomen by computed tomography. Low-dose protocol was utilized. CTDI vol (mGy): 2.90 DLP (mGy-cm): 116.98 There is no axillary adenopathy. There is no hilar or mediastinal adenopathy. The heart is proper size. There is a stable left periaortic soft tissue opacity of uncertain etiology, may be vascular. There is no pericardial or pleural effusion. Limited images of the upper abdomen are unremarkable. Lung window images demonstrate moderate changes of emphysema and moderate pulmonary scarring. There is a stable 9 mm ovoid nodule in the region of the right major fissure favoring a fissural lymph node. There is a calcified granuloma in the left lower lobe. There is a stable 2 mm right middle lobe nodule on image 47. There is a new 7 mm nodular opacity in the right lung apex on image 15. There is a 2nd new nodule just inferomedial to this measuring 4 mm seen on image 19. IMPRESSION: Stable and new lung nodules as described. Stable left periaortic soft tissue opacity of uncertain etiology, may be vascular. Lung RADS category 4A. Recommend 3 month follow-up low-dose chest CT. Reviewed, Interpreted and Dictated by Star Norton III, MD Transcribed by Myrtle Saez Authenticated and [facility]
== END ==
PROVIDERS: PCP Internal Medicine Adolescent Medicine; Visit Provider Nurse Practitioner Family
DX: Z87.891 Personal history of nicotine dependence (principal); Z12.2 Encounter for screening for malignant neoplasm of respiratory organs
CPT/HCPCS: 71271

== ENCOUNTER → 2021-12-15 10:02 | Outpatient (CLI) | payer MEDICARE, SELFPAY | PROVIDERS: PCP Internal Medicine Adolescent Medicine; Visit Provider Internal Medicine | DX: Z01.812 Encounter for preprocedural laboratory examination (principal); Z20.822 Contact with and (suspected) exposure to COVID-19; Z13.810 Encounter for screening for upper gastrointestinal disorder; Z12.11 Encounter for screening for malignant neoplasm of colon | CPT/HCPCS: C9803; U0003; U0005 ==

== ENCOUNTER 2021-12-17 09:46 | Day surgery (SDC) | payer MEDICARE, SELFPAY ==
[2021-12-12 09:58] VITALS: BMI 17.0
[2021-12-17] VITALS (7 sets, daily range): BP systolic 92–148; BP diastolic 46–78; PULSE 63–70; RESP 18; TEMP 36.4–36.6; O2SAT 96–100
--- NOTE | 2021-12-17 11:17 | EXP.ANES.CKL ---
[facility] Medical History COPD (chronic obstructive pulmonary disease) History of COVID-19 Hyperlipidemia Osteoarthritis Skin cancer Ulcer Wrist fracture Surgical History History of colon resection Family History Other Family history of cancer Social History (Updated 12/17/21 @ 10:48 by Mary Lou Hollis RN) Smoking Status: Smoker, status unknown alcohol intake: former substance use type: denies use, marijuana, crack/cocaine, heroin, opiates, methamphetamine and other current occupational status: retired Travel in the last 8 weeks: None adopted: No caregiver/support person: No foster care: No household members: spouse lives independently: Yes marital status: education level: college service: No fci: No current occupational exposures/hazards: No special adin needs: No agree to transfusion: Yes [facility] Anesthesia Checklist Patient Identification Patient Identification: Arm Band Structural Data Admitted From: Home Planned Operative Procedure/s: egd/colonoscopy Consent for Planned Operative Procedure(s) Verified: Yes Verified Documents: Surgical Consent and History and Physical NPO Status Verified Time NPO: 00:00 Additional verifications Anesthesia Reactions: No Airway Assessment C-Spine Mobility Assessed: Yes TMJ Mobility Assessed: Yes Dentition: Edentulous Neurological Assessment Level of Consciousness: Awake and Alert Anesthesia Plan Anesthesia Risk discussed: Yes Anesthesia Plan: Verified ASA Class: III Anesthesia Type: MAC
--- NOTE | 2021-12-17 11:55 | HMH.SCOPE ---
Procedure: Date: 12/17/21 Patient Date of :: 1945 Procedure Performed:: EGD Indications:: Weight loss Performing Provider:: Guillermo Chapa MD Referring Provider:: Tio Loo MD Sedation:: See RN notes Procedure:: The gastroscope was gently passed through the incisoral orifice into the oral cavity and under direct visualization the esophagus was intubated. The endoscope was passed down the esophagus, through the stomach, and into the duodenum. Color, texture, mucosa, and anatomy of the esophagus, stomach, and duodenum were carefully examined with the scope. Findings:: Oropharynx: normal Esophagus: normal EG Junction: measured at 40 cm Cardia: normal Fundus: Gasttritis, thickening of gastric folds. Biopsies obtained Body: Diffuse ulceration, thickened and edematous appearance to gastric folds, gastritis, friable mucosa. Multiple biopsies obtained Antrum: Gastritis. Superficial ulcer with pigmented spots 6-7 mm in size, Clean based superficial ulcer 4 mm in size. Gastritis. Biopsies obtained Duodenal bulb: normal Duodenum (second and third portion): normal Impression: Gastric ulcerations with thickening of gastric folds. The stomach within the body did not insulflate well with air Recommendations:: Await pathology results Start Omeprazole 40 mg once daily Avoid NSAIDs Recommend CT abdomen with po and iv contrast if not completed already Move forward to colonoscopy for evaluation of weight loss Complications:: none Estimated blood obtained (mL): 0
--- NOTE | 2021-12-17 12:00 | HMH.SCOPE ---
Procedure: Date: 12/17/21 Patient Date of :: 1945 Procedure Performed:: Colonoscopy Indications:: History of polyps. The patient had a colonoscopy 10 years ago and reports having had a large colon polyp that required surgical resection Performing Provider:: Guillermo Chapa MD Referring Provider:: Tio Loo MD Sedation:: See RN notes Procedure:: After placing the patient in the left lateral decubitus position, the colonoscopy was gently inserted into the rectum and under direct visualization advanced to the cecum which was identified by transillumination in the right lower quadrant, identification of the ileocecal valve, appendiceal orifice, and cecal strap. Color, texture, mucosa, and anatomy of the colon were carefully examined with the scope. Findings:: Anal canal: normal Rectum: normal Sigmoid colon: resected. Surgical changes of colorectal anastamosis Descending colon: normal without polyps or inflammatory changes Splenic flexure: normal Transverse colon: normal without polyps or inflammatory changes Hepatic flexure: normal Ascending colon: normal without polyps or inflammatory changes Cecum: normal Terminal ileum: not visualized Impression: 1. Surgical changes of distal colon 2. Very tortuous colon Recommendations:: In view of age and difficult colonoscopy with a very tortuous colon, no further surveillance with colonoscopy can be recommended Complications:: None Estimated blood obtained (mL): 0
== END 2021-12-17 12:35 | disposition home or self-care (01) ==
PROVIDERS: PCP Internal Medicine Adolescent Medicine; Visit Provider Internal Medicine
PROC: 0DJ08ZZ Inspection of Upper Intestinal Tract, Via Natural or Artificial Opening Endoscopic (ICD-10-PCS; CPT 43235; principal; 2021-12-17 11:00)
DX: Z12.11 Encounter for screening for malignant neoplasm of colon (principal); Z86.010 Personal history of colon polyps; R63.4 Abnormal weight loss; K29.50 Unspecified chronic gastritis without bleeding; Z79.899 Other long term (current) drug therapy
CPT/HCPCS: 43239; G0105; 88305

== ENCOUNTER → 2022-02-27 15:32 | Outpatient (CLI) | payer MEDICARE, SELFPAY ==
[2022-02-27 17:40] LABS: Basophils # 0.1 K/mm3 (0-0.2); Basophils % 0.9 % (0.1-2.0); Eosinophils # 0.2 K/mm3 (0.0-0.4); Eosinophils % 2.2 % (0.1-12.0); Hematocrit 38.4 % (42.0-52.0); Hemoglobin 12.2 g/dL (14.1-18.0); Lymphocytes # 1.3 K/mm3 (0.7-4.5); Mean Corpuscular HGB Conc 31.8 g/dL (31.8-35.4); Mean Corpuscular Hemoglobin 30.6 pg (27.0-31.2); Mean Corpuscular Volume 96.4 fl (80-94); Mean Platelet Volume 9.1 fl (7.4-10.4); Monocytes # 0.6 K/mm3 (0.1-1.0); Monocytes % 8.6 % (1.7-9.3); Neutrophils # 5.1 K/mm3 (1.8-7.8); Neutrophils % 70.3 % (37.0-80.0); Platelet Count 374 K/mm3 (142-424); Red Blood Count 3.98 M/mm3 (4.60-6.20); Red Cell Distribution Width 13.2 % (11.5-17.5); White Blood Count 7.3 K/mm3 (4.8-10.8)
[2022-02-27 18:33] LABS: Alanine Aminotransferase 15 U/L (12-78); Albumin Level 3.4 g/dl (3.5-5.0); Albumin/Globulin Ratio 1.3 (1.1-1.8); Alkaline Phosphatase 99 U/L (38-126); Anion Gap 15.6 mEq/L (5-15); Aspartate Amino Transferase 24 U/L (17-59); Bilirubin,Total 0.2 mg/dl (0.2-1.3); Blood Urea Nitrogen 18 mg/dl (9-20); Calcium 9.3 mg/dl (8.4-10.2); Carbon Dioxide 31 mmol/L (22.0-30.0); Chloride 97 mmol/L (98-107); Estimated Glomerular Filt Rate 73 ml/min (>60); GFR (African American) 88 ML/MIN (>60); Globulin 2.7 g/dL (1.3-3.2); Glucose 72 mg/dl (74-100); Potassium 4.6 mmoL/L (3.5-5.1); Sodium 139 mmol/L (136-145); Total Protein,Serum 6.1 g/dl (6.3-8.2)
[2022-02-27 18:38] LABS: C-Reactive Protein 21.6 mg/L (0-4)
[2022-03-01 08:09] LABS: Prealbumin 13 mg/dL (9-32)
== END ==
PROVIDERS: PCP Internal Medicine Adolescent Medicine; Visit Provider Physician Assistant
DX: R63.4 Abnormal weight loss (principal); Z68.1 Body mass index [BMI] 19.9 or less, adult
CPT/HCPCS: 36415; 80053; 84134; 85025; 86140

== ENCOUNTER → 2022-03-12 12:08 | Outpatient (CLI) | payer MEDICARE, SELFPAY ==
--- NOTE | 2022-03-12 12:14 | XR_ITS ---
FINAL REPORT CLINICAL HISTORY: RT WRIST PAIN COMPARISON: January 2018 FINDINGS: 3 views of the right wrist were obtained. There is no acute fracture or dislocation. There are mild hypertrophic changes at the basilar joint. Again seen is a curvilinear density multilevel of the 2nd metacarpal consistent with a linear metallic foreign body. IMPRESSION: No acute abnormality. Reviewed, Interpreted and Dictated by Carlos Wong MD Transcribed by Louis Jeffers Authenticated and [facility]
== END ==
PROVIDERS: PCP Internal Medicine Adolescent Medicine; Visit Provider Nurse Practitioner Family
DX: M25.531 Pain in right wrist (principal)
CPT/HCPCS: 73110

== ENCOUNTER 2022-03-25 11:23 | Emergency (ER) | payer MEDICARE, SELFPAY ==
[2022-03-25 11:25] VITALS: BP 125/81; PULSE 83; RESP 18; TEMP 37; O2SAT 99; BMI 14.5
--- NOTE | 2022-03-25 11:39 | PC.NURSE ---
DR. GOLDEN AT BEDSIDE
--- NOTE | 2022-03-25 11:47 | HMH.EDGENADL ---
Discharge Plan Disposition Patient Disposition: Home, Self-Care Prescriptions Prescriptions: New famotidine 20 mg tablet 20 mg PO BID 14 Days Qty: 28 0RF metoclopramide HCl 10 mg tablet 10 mg PO Q6H PRN (Reason: nausea and vomiting) Qty: 30 0RF No Action albuterol sulfate [Ventolin HFA] 90 mcg/actuation HFA aerosol inhaler 2 puff INHALATION Q6H PRN (Reason: copd) Anoro Ellipta 62.5-25 mcg/actuation blister with device 1 inh INHALATION DAILY acetaminophen 325 MG capsule 650 mg PO QIDP PRN (Reason: pain) cetirizine 10 mg tablet 1 mg PO DAILY Label Comments: TAKE 1 TABLET BY MOUTH ONCE DAILY Referrals Follow up/Referrals: Tio Loo MD [Primary Care Provider] - See instructions Clinical Impressions Clinical Impression: Gastritis Instructions Patient Instructions: DI for Gastritis Discharge ED Provider: Patrick Richards General Adult HPI General Chief complaint: PAIN Stated complaint: hands swollen, abd pain, leg pain, light headed Time Seen by Provider: 03/25/22 11:40 Mode of Arrival: Ambulatory Limitations: No Limitations Description of Symptoms (Recalled from ER Triage Doc. by RN): PT WITH C/O SWELLING OF FINGERS/JOINTS. STARTED YESTERDAY. REPORTS INTERMITTENT ABDOMINAL PAIN X SEVERAL MONTHS WITH WEIGHT LOSS History of Present Illness HPI narrative: Patient is a 77-year-old male who presents with multiple complaints. He states that he has been having some swelling of his right finger. He locates it right at his second MCP joint. He says he has not seen anybody for this. He says that it has come up over the last couple of days. He says that this is a side problem and his main issue is that he is worried about some intermittent abdominal pain and weight loss. He says that he just had a colonoscopy recently and all they found was an ulcer that they explained could be the cause of his decreased appetite. He says that he is really only eating small amounts of food a couple times a day. He says he is lost over 20 pounds in the last 6 months. He says that he has been trying to drink boost to help with his weight loss but he does not seem to be able to keep up. He does have an upcoming appoint with GI for further evaluation. He says that he smoked for about 40 years. He denies any new sputum production. Denies any melena. Denies any hemoptysis. Related Data Home Medications Medication Instructions Recorded Confirmed albuterol sulfate 90 mcg/actuation 2 puff inhalation Q6H PRN copd 05/23/19 12/17/21 aerosol inhaler (Ventolin HFA) umeclidinium 62.5 mcg-vilanterol 1 inh inhalation DAILY COPD 05/23/19 12/17/21 25 mcg/actuation powdr for inhalation (Anoro Ellipta) acetaminophen 325 mg capsule 650 mg PO QIDP PRN pain 11/12/19 12/17/21 cetirizine 10 mg tablet 1 mg PO DAILY allergies 12/12/21 12/17/21 Previous Rx's Medication Instructions Recorded famotidine 20 mg tablet 20 mg PO BID 2 weeks #28 tabs 03/25/22 metoclopramide HCl 10 mg tablet 10 mg PO Q6H PRN nausea and 03/25/22 vomiting #30 tabs Allergies Allergy/AdvReac Type Severity Reaction Status Date / Time iodine [IODINE] Allergy Unknown I-HIVES Verified 12/17/21 10:27 [facility] Disclaimer: The information contained in this section may have been updated after the patient was seen, as this information can be updated by other users. Medical History (Updated 03/25/22 @ 18:36 by Patrick Richards MD) COPD (chronic obstructive pulmonary disease) History of COVID-19 Hyperlipidemia Osteoarthritis Skin cancer Ulcer Wrist fracture Surgical History History of colon resection Family History Other Family history of cancer Social History (Updated 03/25/22 @ 11:44 by Paulina Stephens RN) Smoking Status: Former smoker alcohol intake: former substance use typ
--- NOTE | 2022-03-25 11:48 | CT_ITS ---
PROCEDURE INFORMATION: Exam: CT Abdomen And Pelvis With Contrast Exam date and time: 03/25/2022 5:06 PM Age: 77 years old Clinical indication: Condition or disease; Other: Concern for metastatic disease TECHNIQUE: Imaging protocol: Computed tomography of the abdomen and pelvis with contrast. Radiation optimization: All CT scans at this facility use at least one of these dose optimization techniques: automated exposure control; mA and/or kV adjustment per patient size (includes targeted exams where dose is matched to clinical indication); or iterative reconstruction. Contrast material: ISOVUE; Contrast volume: 75 ml; Contrast route: IV; COMPARISON: ABDPELW/O CT ABD PELVIS W/O CONTRAST 07/29/2015 5:19 PM FINDINGS: Lungs: Lung bases are clear. Liver: There is a small hypodense liver lesion along the anterior aspect of the left lobe relatively stable allowing for differences in technique, likely benign. Liver is otherwise unremarkable. Gallbladder and bile ducts: Normal. No calcified stones. No ductal dilation. Pancreas: Normal. No ductal dilation. Spleen: Normal. No splenomegaly. Adrenal glands: Normal. No mass. Kidneys and ureters: A few small cortical cysts left kidney statistically likely benign. Right kidney is unremarkable. Stomach and bowel: There is interval development of diffuse thickening of the gastric wall with mural stratification and submucosal enhancement likely secondary to gastric wall edema that is presumed secondary to acute gastritis. No intraperitoneal free air or compelling evidence of gastric perforation. There are postsurgical changes in the rectosigmoid region that are stable. Mild degree of retained stool is noted in the large bowel. Appendix: No evidence of appendicitis. Intraperitoneal space: There is a small amount of pelvic ascites which may be related to the gastric pathology. Vasculature: Scattered atherosclerotic changes of the abdominal aorta and iliac vessels. No aortic aneurysm. Lymph nodes: Unremarkable. No enlarged lymph nodes. Urinary bladder: Unremarkable as visualized. Reproductive: Unremarkable as visualized. Bones/joints: Mild degenerative changes lower lumbar spine. No acute bony abnormalities. Soft tissues: Unremarkable. IMPRESSION: 1. Findings consistent with acute gastritis with pronounced edema of the gastric wall and small amount of accompanying pelvic ascites for which close clinical follow-up recommended. 2. Stable small liver lesion left lobe, likely benign. No compelling evidence of metastatic disease. COMMENTS: Consistent with the [employer]'s Incidental Findings Committee white paper (J Am Juan Radiol 2018): Any incidental renal lesion less than 1 cm or classified as too small to characterize, or any incidental cystic renal lesion characterized as simple-appearing, is likely benign. No follow-up imaging is recommended for these lesions per consensus recommendations based on imaging criteria.
[2022-03-25 12:13] LABS: Chloride 100 mmol/L (98-107); Potassium 4.3 mmoL/L (3.5-5.1); Sodium 139 mmol/L (136-145)
[2022-03-25 12:14] LABS: Basophils # 0.1 K/mm3 (0-0.2); Basophils % 1.1 % (0.1-2.0); Eosinophils # 0.2 K/mm3 (0.0-0.4); Eosinophils % 3.9 % (0.1-12.0); Hematocrit 42.1 % (42.0-52.0); Hemoglobin 13.5 g/dL (14.1-18.0); Lymphocytes # 1.4 K/mm3 (0.7-4.5); Lymphocytes % 24.1 % (10-50); Mean Corpuscular HGB Conc 32.1 g/dL (31.8-35.4); Mean Corpuscular Hemoglobin 30.6 pg (27.0-31.2); Mean Corpuscular Volume 95.5 fl (80-94); Mean Platelet Volume 8.2 fl (7.4-10.4); Monocytes # 0.5 K/mm3 (0.1-1.0); Monocytes % 7.5 % (1.7-9.3); Neutrophils # 3.8 K/mm3 (1.8-7.8); Neutrophils % 63.4 % (37.0-80.0); Platelet Count 387 K/mm3 (142-424)
[2022-03-25 12:16] LABS: Alanine Aminotransferase 17 U/L (12-78); Albumin Level 3.9 g/dl (3.5-5.0); Albumin/Globulin Ratio 1.3 (1.1-1.8); Alkaline Phosphatase 97 U/L (38-126); Anion Gap 13.3 mEq/L (5-15); Aspartate Amino Transferase 28 U/L (17-59); Bilirubin,Total 0.3 mg/dl (0.2-1.3); Blood Urea Nitrogen 14 mg/dl (9-20); Carbon Dioxide 30 mmol/L (22.0-30.0); Creatinine Clearance Estimated 46 mL/min (50-200); Estimated Glomerular Filt Rate 82 ml/min (>60); GFR (African American) 99 ML/MIN (>60); Globulin 3.1 g/dL (1.3-3.2)
[2022-03-25 12:17] LABS: Calcium 9.3 mg/dl (8.4-10.2); Glucose 109 mg/dl (74-100)
[2022-03-25 12:21] LABS: C-Reactive Protein 20.9 mg/L (0-4)
[2022-03-25 12:30] VITALS: BP 105/74; PULSE 83
--- NOTE | 2022-03-25 13:00 | PC.NURSE ---
1300 PT MEDICATED PER EMAR. PT UPDATED ON POC
--- NOTE | 2022-03-25 14:15 | PC.NURSE ---
1415 PT UP TO BR, NO NEEDS AT THIS TIME
--- NOTE | 2022-03-25 15:00 | PC.NURSE ---
1500 PT RESTING IN BED, FAMILY AT BEDSIDE.
--- NOTE | 2022-03-25 16:23 | PC.NURSE ---
RADIOLOGY NOTIFIED ALL MEDS GIVEN FOR CT SCAN
[2022-03-25 16:26] VITALS: BP 142/108; PULSE 71; O2SAT 100
[2022-03-25 16:30] VITALS: BP 120/70; PULSE 70; O2SAT 95
--- NOTE | 2022-03-25 16:56 | PC.NURSE ---
PT TO CT AT THIS TIME
--- NOTE | 2022-03-25 17:30 | PC.NURSE ---
1730 PT GIVEN WARM BLANKET
--- NOTE | 2022-03-25 17:36 | CT_ITS ---
PROCEDURE INFORMATION: Exam: CT Chest With Contrast; Diagnostic Exam date and time: 03/25/2022 5:06 PM Age: 77 years old Clinical indication: Condition or disease; Other: Concern for metastatic disease; Additional info: R/O metastisis TECHNIQUE: Imaging protocol: Diagnostic computed tomography of the chest with contrast. Radiation optimization: All CT scans at this facility use at least one of these dose optimization techniques: automated exposure control; mA and/or kV adjustment per patient size (includes targeted exams where dose is matched to clinical indication); or iterative reconstruction. Contrast material: ISOVUE; Contrast volume: 75 ml; Contrast route: IV; COMPARISON: [facility] CT CHEST W/O CONTRAST 01/12/2017 8:51 AM FINDINGS: Lungs: Lung fallon are hyperinflated with scattered upper lobe emphysematous changes relatively stable from previous examination. There is mild focal bronchiectasis right upper lobe that is unchanged. There is superimposed chronic biapical thickening that is stable. Stable small fissural nodule right midlung zone and few small pulmonary nodules left mid lung zone, stable, benign. There are no new nodules or masses detected. Pleural spaces: Unremarkable. No pneumothorax. No pleural effusion. Heart: Heart size is stable relatively small likely secondary to COPD. No significant coronary artery calcifications or pericardial effusion. Lymph nodes: There is no suspicious mediastinal, hilar or axillary lymphadenopathy. Vasculature: Unremarkable. No aortic aneurysm. Bones/joints: There are no suspicious bone lesions evident. Soft tissues: Unremarkable. IMPRESSION: 1. No evidence of metastatic disease within the chest. 2. COPD with scattered emphysematous changes and chronic biapical thickening, stable. 3. Few small pulmonary nodules stable, benign
--- NOTE | 2022-03-25 18:20 | PC.NURSE ---
PT UPDATED AT THIS TIME, AWAITING CT RESULTS.
--- NOTE | 2022-03-25 18:22 | PC.NURSE ---
DR. GOLDEN SPEAKING WITH [employer]
--- NOTE | 2022-03-25 18:24 | PC.NURSE ---
DR. OGLDEN AT BEDSIDE TO UPDATE PT
[2022-03-25 18:50] VITALS: BP 128/75; PULSE 72; RESP 17; TEMP 36.7; O2SAT 99
== END 2022-03-25 18:50 | disposition home or self-care (01) ==
PROVIDERS: Emergency Provider Student in an Organized Health Care Education/Training Program; PCP Internal Medicine Adolescent Medicine
DX: K29.00 Acute gastritis without bleeding (principal); R63.4 Abnormal weight loss; R18.8 Other ascites; M79.606 Pain in leg, unspecified; M79.89 Other specified soft tissue disorders; R11.2 Nausea with vomiting, unspecified; Z86.16 Personal history of COVID-19; E78.5 Hyperlipidemia, unspecified; M19.90 Unspecified osteoarthritis, unspecified site; J44.9 Chronic obstructive pulmonary disease, unspecified; Z79.1 Long term (current) use of non-steroidal anti-inflammatories (NSAID); Z79.899 Other long term (current) drug therapy; Z88.8 Allergy status to other drugs, medicaments and biological substances; Z68.1 Body mass index [BMI] 19.9 or less, adult; Z85.828 Personal history of other malignant neoplasm of skin; Z87.891 Personal history of nicotine dependence
CPT/HCPCS: 71260; 74177; 80053; 85025; 86140; 96374; 96375; 99285; Q9967